=== PATIENT | male | born 1940 | race Caucasian/White ===

== ENCOUNTER 2020-03-21 15:31 | Emergency (ER) | payer MEDICARE, OTHER ==
[~2020-03-21] VITALS: Ht 175.3 cm; Wt 95.0 kg
[2020-03-21 15:42] VITALS: Ht 175.3 cm; Wt 95.0 kg
[2020-03-21] MEDS ORDERED: RIOMET500 MG/5 M (15:43)
[2020-03-21] MEDS ORDERED: HTN MED (15:43)
[2020-03-21 16:17] LABS: BASOPHILS 0.1 % (0-2); EOSINOPHILS 0.1 % (0-7); HEMATOCRIT 34.7 % (42.0-54.0); HEMOGLOBIN 11.4 g/dL (13.5-17.5); IMMATURE GRANULOCYTES 0.3 % (0-5); LYMPHOCYTES 5.2 % (15-50); MCH 31.1 pg (26.0-34.0); MCHC 32.9 g/dL (31.0-37.0); MCV 94.6 fL (80.0-100.0); MEAN PLATELET VOLUME 10.5 fL (7.4-10.4); NEUTROPHILS 87.3 % (40-80); PLATELET COUNT 125 10x3/uL (130-400); RBC 3.67 10x6/uL (4.20-6.10); RDW 14.1 % (11.5-14.5); WBC 16.1 10x3/uL (4.8-10.8)
[2020-03-21 16:35] LABS: ANION GAP 13.6 mmol/L (8-16); CALCIUM 8.9 mg/dL (8.5-10.1); CARBON DIOXIDE 22.6 mmol/L (21.0-32.0); CREATININE - SERUM 1.3 mg/dL (0.6-1.3); POTASSIUM - SERUM 4.2 mmol/L (3.5-5.1)
[2020-03-21 16:41] LABS: ALBUMIN 3.6 g/dL (3.4-5.0); BILIRUBIN - TOTAL 0.58 mg/dL (0.2-1.3); PROTEIN - SERUM 7.3 g/dL (6.4-8.2)
[2020-03-21 16:41] LABS: INR 1.05 (0.85-1.17); PROTIME 13.7 SECONDS (11.6-15.0)
[2020-03-21 16:42] LABS: APTT 27.7 SECONDS (22.8-39.4)
[2020-03-21 17:19] LABS: CKMB 1.1 U/L (0.0-3.6); CREATINE KINASE 97 UL (21-232); PRO BNP 463 pg/mL (0-450); TROPONIN-I 0.018 ng/mL (0.000-0.060)
[2020-03-21 19:13] LABS: BILIRUBIN NEGATIVE (NEGATIVE); GLUCOSE NEGATIVE (NEGATIVE); KETONE NEGATIVE (NEGATIVE); NITRITE NEGATIVE (NEGATIVE); SPECIFIC GRAVITY 1.015 (1.005-1.020); UROBILINOGEN NORMAL (NORMAL)
[2020-03-21 20:30] VITALS: BP 120/60
== END 2020-03-21 20:30 | disposition home or self-care (01) ==
LOC: D.ER 15:31
PROVIDERS: Family Medicine
DX: R50.9 Fever, unspecified (principal); R53.1 Weakness; E11.9 Type 2 diabetes mellitus without complications; Z79.84 Long term (current) use of oral hypoglycemic drugs; I10 Essential (primary) hypertension

== ENCOUNTER 2020-05-13 22:27 | Emergency (ER) | payer MEDICARE, OTHER ==
[~2020-05-13] VITALS: Ht 175.3 cm; Wt 95.3 kg
[~2020-05-13 22:27] MED LIST: HTN MED; RIOMET500 MG/5 M
[2020-05-13 22:40] VITALS: Ht 175.3 cm; Wt 95.3 kg
[2020-05-14 00:53] VITALS: BP 113/60
== END 2020-05-14 00:54 | disposition home or self-care (01) ==
LOC: D.ER 22:27
DX: R04.0 Epistaxis (principal); E11.9 Type 2 diabetes mellitus without complications; I10 Essential (primary) hypertension; Z79.84 Long term (current) use of oral hypoglycemic drugs

== ENCOUNTER → 2020-12-23 12:42 | Outpatient (CLI) | payer MEDICARE ==
[2020-08-20 15:03] VITALS: BMI 30.3
[~2020-12-23 12:42] MED LIST changes: +CANDESARTAN PO; +DEXAMETHASONE2 MG PO; +GLIMEPIRIDE2 MG PO; +GLUCOPHAGE1000 MG PO; -HTN MED; +LEVOFLOXACIN500 MG PO; +TOPROL XL25 MG PO
== END | disposition home or self-care (01) ==
LOC: D.RT 11-18 09:00
PROVIDERS: ATTEND Internal Medicine Pulmonary Disease
DX: R06.09 Other forms of dyspnea (principal)